=== PATIENT | female | born 1995 | race Caucasian/White ===

== ENCOUNTER 2016-06-11 16:08 | Emergency (ER) | payer BC, OTHER ==
[~2016-06-11] VITALS: Wt 48.0 kg
[~2016-06-11 16:08] MED LIST: ACET325T33 PO
[2016-06-11 17:37] LABS: BASOPHIL # 0.1 10^3/ul (0.0-0.1); CONDITION 1; EOSINOPHILS % 0.5 % (0.0-7.0); HEMATOCRIT 35.5 % (37.0-47.0); HEMOGLOBIN 11.8 g/dl (12.0-16.0); LYMPHOCYTES # 1.9 10^3/ul (0.8-2.9); LYMPHOCYTES % 27.2 % (15.0-51.0); MEAN CORPUSCULAR HEMOGLOBIN 27.7 pg (29.0-33.0); MEAN CORPUSCULAR HGB CONC 33.3 g/dl (32.0-37.0); MEAN CORPUSCULAR VOLUME 83.1 fl (82.0-101.0); MEAN PLATELET VOLUME 7.2 fl (7.4-10.4); MONOCYTE # 0.7 10^3/ul (0.3-0.9); MONOCYTES % 9.3 % (0.0-11.0); NEUTROPHIL # 4.4 10^3/ul (1.6-7.5); PLATELET COUNT 281 10^3/UL (140-440); RED BLOOD COUNT 4.27 10^6/ul (4.20-5.40); RED CELL DISTRIBUTION WIDTH 14.3 % (11.5-14.5); UNCORRECTED WBC 7.2 10^3/ul (4.8-10.8); WHITE BLOOD COUNT 7.2 10^3/ul (4.8-10.8)
[2016-06-11 17:38] LABS: ADD UMIC NO; URINE BILIRUBIN (Dip) NEGATIVE (NEGATIVE); URINE BLOOD (Dip) NEGATIVE (NEGATIVE); URINE COLOR LT. YELLOW (YELLOW); URINE GLUCOSE (Dip) NEGATIVE (NEGATIVE); URINE KETONES (Dip) NEGATIVE (NEGATIVE); URINE LEUKOCYTE ESTERASE (Dip) NEGATIVE (NEGATIVE); URINE NITRITE (Dip) NEGATIVE (NEGATIVE); URINE TOTAL PROTEIN (Dip) NEGATIVE (NEGATIVE); URINE UROBILINOGEN (Dip) 0.2 E.U./dL (0.1-1.0)
[2016-06-11 17:44] LABS: ALBUMIN 4.8 g/dl (3.3-4.9)
[2016-06-11 17:45] LABS: POTASSIUM 3.6 mmol/L (3.5-5.1)
[2016-06-11 17:47] LABS: ALBUMIN/GLOBULIN RATIO 1.41; BILIRUBIN,INDIRECT 0.2 mg/dl (0-1.1); BILIRUBIN,TOTAL 0.2 mg/dl (0.2-1.3); CREATININE 0.6 mg/dl (0.44-1.00); TOTAL PROTEIN 8.2 g/dl (6.1-8.1)
[2016-06-11 17:48] LABS: CALCIUM 9.5 mg/dl (8.4-10.2)
[2016-06-11 18:04] LABS: T3 UPTAKE 34.4 % (23.5-40.5)
--- NOTE | 2016-06-11 18:48 | ERD ---
ER Documentation Chief Complaint Date/Time DATE: 06/11/16 TIME: 18:47 Chief Complaint gen weakness and fatigue with nausea no vomiting. non traumatic back pain HPI This 20-year-old female presents with generalized weakness and fatigue for last 4 months. She has intermittent palpitations. She is intermittent migratory abdominal pain. She denies any fevers, shortness of breath, leg swelling, vomiting, diarrhea, urinary complaints. She does not have a primary care doctor and has not been evaluated for this yet. ROS All systems reviewed and are negative except as per history of present illness. Medications Home Meds Active Scripts Acetaminophen* (Tylenol*) 325 Mg Tablet, 2 TAB PO Q8 Y for PAIN AND OR ELEVATED TEMP, #20 TAB Prov:BILLY VEGA PA-C 01/08/16 Allergies Allergies: Coded Allergies: No Known Allergy (Unverified , 06/11/16) PMhx/Soc Medical and Surgical Hx: pt denies Medical Hx, pt denies Surgical Hx Hx Alcohol Use: No Hx Substance Use: No Hx Tobacco Use: No Smoking Status: Never smoker Physical Exam Vitals Vital Signs Date Time Temp Pulse Resp B/P Pulse Ox O2 Delivery O2 Flow Rate FiO2 06/11/16 16:14 98.5 60 20 140/86 99 Physical Exam Const: [] Head: Atraumatic Eyes: Normal Conjunctiva ENT: Normal External Ears, Nose and Mouth. Neck: Full range of motion..~ No meningismus. Resp: Clear to auscultation bilaterally Cardio: Regular rate and rhythm, no murmurs Abd: Soft, non tender, non distended. Normal bowel sounds Skin: No petechiae or rashes Back: No midline or flank tenderness Ext: No cyanosis, or edema Neur: Awake and alert Psych: Normal Mood and Affect Result Diagram: 06/11/16 1725 06/11/16 1725 Results 24 hrs Laboratory Tests Test 06/11/16 17:25 Alanine Aminotransferase (ALT/SGPT) 29IU/L Albumin 4.8g/dl Albumin/Globulin Ratio 1.41 Alkaline Phosphatase 80IU/L Anion Gap 18 Aspartate Amino Transf (AST/SGOT) 30IU/L Basophils # 0.110^3/ul Basophils % 1.0% Blood Morphology Comment Blood Urea Nitrogen 8mg/dl Calcium Level 9.5mg/dl Carbon Dioxide Level 28mmol/L Chloride Level 100mmol/L Creatinine 0.60mg/dl Direct Bilirubin 0.00mg/dl Eosinophils # 0.010^3/ul Eosinophils % 0.5% Free Thyroxine Index 2.58ug/ml Globulin 3.40g/dl Glucose Level 92mg/dl Hematocrit 35.5% Hemoglobin 11.8g/dl Indirect Bilirubin 0.2mg/dl Lymphocytes # 1.910^3/ul Lymphocytes % 27.2% Mean Corpuscular Hemoglobin 27.7pg Mean Corpuscular Hemoglobin Concent 33.3g/dl Mean Corpuscular Volume 83.1fl Mean Platelet Volume 7.2fl Monocytes # 0.710^3/ul Monocytes % 9.3% Neutrophils # 4.410^3/ul Neutrophils % 62.0% Nucleated Red Blood Cells # 0.010^3/ul Nucleated Red Blood Cells % 0.0/100WBC Platelet Count 25462^3/UL Potassium Level 3.6mmol/L Red Blood Count 4.2710^6/ul Red Cell Distribution Width 14.3% Sodium Level 142mmol/L Thyroid Stimulating Hormone (TSH) 1.000MIU/L Thyroxine (T4) 7.5ug/dl Total Bilirubin 0.2mg/dl Total Protein 8.2g/dl Triiodothyronine (T3) Uptake 34.4% Urine Bilirubin NEGATIVE Urine Clarity CLEAR Urine Color LT. YELLOW Urine Glucose NEGATIVE% Urine Hemoglobin NEGATIVE Urine Ketones NEGATIVE Urine Leukocyte Esterase NEGATIVE Urine Nitrite NEGATIVE Urine Specific Peterson <=1.005 Urine Total Protein NEGATIVE Urine Urobilinogen 0.2 E.U./dL Urine pH 6.5 White Blood Count 7.210^3/ul Procedures/MDM CBC shows hemoglobin 11.8 otherwise normal. CMP lipase normal. Urine is negative for leukocytes, nitrites and glucose. HCG is negative. Thyroid studies are normal. EKG: Rate/Rhythm: [Normal Sinus Rhythm] rate of 64 QRS, ST, T-waves: [No changes consistent w/ acute ischemia] Impression: [No evidence of ischemia or arrhythmia]. Impression abnormal EKG Patient presents with multiple complaints including but not limited to fatigue, migratory abdominal pain, palpitations, uncertain etiology. There is no signs or symptoms of any emergent illness today. She will be discharged home with further observation and instructions to follow-up with primary care doctor for further evaluation and management and primary care. She should otherwise return to the ER for new or worsening symptoms as directed and aftercare instructions. The patient was stable with no new complaints during the ER course. Clinically, there is no current evidence to suggest meningitis, sepsis, acute abdomen, pneumonia, acute coronary syndrome, pulmonary embolism, or any other emergent condition appearing to require further evaluation or hospitalization. The patient should certainly return for any new or worsening symptoms per the aftercare instructions. They should otherwise follow-up with her primary care doctor for reevaluation this week. Departure Diagnosis: Primary Impression: Palpitations Additional Impression: Fatigue Fatigue type: unspecified Qualified Code: R53.83 - Fatigue, unspecified type Patient Instructions: Palpitations, Weakness, Unk Cause Referrals: [facility] YOU HAVE RECEIVED A MEDICAL SCREENING EXAM AND THE RESULTS INDICATE THAT YOU DO NOT HAVE A CONDITION THAT REQUIRES URGENT TREATMENT IN THE EMERGENCY DEPARTMENT. FURTHER EVALUATION AND TREATMENT OF YOUR CONDITION CAN WAIT UNTIL YOU ARE SEEN IN YOUR DOCTORS OFFICE WITHIN THE NEXT 1-2 DAYS. IT IS YOUR RESPONSIBILITY TO MAKE AN APPOINTMENT FOR FOLOW-UP CARE. IF YOU HAVE A PRIMARY DOCTOR --you should call your primary doctor and schedule an appointment IF YOU DO NOT HAVE A PRIMARY DOCTOR YOU CAN CALL OUR PHYSICIAN REFERRAL HOTLINE AT IF YOU CAN NOT AFFORD TO SEE A PHYSICIAN YOU CAN CHOSE FROM THE FOLLOWING [facility] [address] [facility] [facility] [address] [facility] [facility] [address] [facility] [facility] [address] [facility] [facility] [address] [facility]. [facility]. [address] Additional Instructions: All examinations normal today were no significant abnormalities to cause symptoms. Recommend rest and drink fluids and recheck for new or worsening symptoms. Recommend primary care doctor for physical further evaluation. KARL ARCE MD Jun 11, 2016 18:48
[2016-06-11 18:54] VITALS: BP 129/73; PULSE 65; RESP 18; TEMP 98.3
== END 2016-06-11 18:55 | disposition home or self-care (01) ==
LOC: FTE 16:08
DX: R00.2 Palpitations (principal); R53.83 Other fatigue
CPT/HCPCS: 80053; 81003; 84436; 84443; 84479; 85025; Z7502